=== PATIENT | male | born 1965 | race African-American/Black ===

== ENCOUNTER 2021-03-12 17:00 | Emergency (ER) | payer BC, MEDICARE ==
[~2021-03-12] VITALS: Ht 170.2 cm; Wt 75.7 kg
[2021-03-12] MEDS ORDERED: methylPREDNISolone SOD SUCC 125 MG/2 ML VL IM ONE (21:00)
[2021-03-12] MEDS ORDERED: KETOROLAC TROMETH 60MG/2ML VIAL IM ONE (21:00)
[2021-03-12 21:11] VITALS: BP 140/65
== END 2021-03-12 21:21 | disposition home or self-care (01) ==
LOC: ER 17:00
DX: M54.59 Other low back pain (principal); M62.838 Other muscle spasm
CPT/HCPCS: 96372; 99284; J1885; J2930

== ENCOUNTER 2021-08-13 09:44 | Emergency (ER) | payer BC ==
[~2021-08-13] VITALS: Ht 170.2 cm; Wt 74.8 kg
[2021-08-13 09:56] VITALS: BP 135/85
[2021-08-13] MEDS ORDERED: methylPREDNISolone SOD SUCC 125 MG/2 ML VL IM ONE (10:00)
[2021-08-13] MEDS ORDERED: ALBUAER3 IN (10:12)
[2021-08-13] MEDS ORDERED: PRED20TA2 PO (10:12)
== END 2021-08-13 10:40 | disposition home or self-care (01) ==
LOC: ER 09:44
DX: J45.901 Unspecified asthma with (acute) exacerbation (principal)
CPT/HCPCS: 96372; 99283; J2930

== ENCOUNTER 2022-01-14 06:41 | Emergency (ER) | payer OTHER, MEDICAID ==
[~2022-01-14] VITALS: Ht 170.2 cm; Wt 71.0 kg
[~2022-01-14 06:41] MED LIST: ALBUAER3 IN; PRED20TA2 PO
[2022-01-14 08:42] VITALS: BP 154/81
[2022-01-14] MEDS ORDERED: KETOROLAC TROMETH 60MG/2ML VIAL IM ONE (09:15)
[2022-01-14] MEDS ORDERED: CYCL-837 PO (10:28)
[2022-01-14] MEDS ORDERED: IBUP600T27 PO (10:28)
== END 2022-01-14 10:32 | disposition home or self-care (01) ==
LOC: ER 06:41
DX: S66.912A Strain of unspecified muscle, fascia and tendon at wrist and hand level, left hand, initial encounter (principal); S63.502A Unspecified sprain of left wrist, initial encounter; X58.XXXA Exposure to other specified factors, initial encounter; Y93.89 Activity, other specified; Y92.89 Other specified places as the place of occurrence of the external cause; Y99.8 Other external cause status
CPT/HCPCS: 73110; 73130; 96372; 99284; J1885